=== PATIENT | male | born 1975 | race Caucasian/White ===

== ENCOUNTER → 2021-08-07 | Day surgery (SDC) | payer BC ==
[~2021-08-07] MED LIST: IBU800 MG PO
== END | disposition home or self-care (01) ==
LOC: OR 06:57
DX: S83.232A Complex tear of medial meniscus, current injury, left knee, initial encounter (principal); X50.1XXA Overexertion from prolonged static or awkward postures, initial encounter; Y93.89 Activity, other specified; Y92.096 Garden or yard of other non-institutional residence as the place of occurrence of the external cause
CPT/HCPCS: J0171; J0690; J1100; J1170; J2250; J2405; J2704; J3010; J7120